=== PATIENT | male | born 1990 | race Hispanic/Latino ===

== ENCOUNTER 2023-11-11 13:33 | Emergency (ER) | payer BC ==
[~2023-11-11] VITALS: Ht 170.2 cm; Wt 73.5 kg
[2023-11-11] MEDS: NEOMY SULF/BACITRA/POLYMYXIN B 1 EACH PACKET TP ONE (15:57)
[2023-11-11] MEDS: cePHALexin 500 MG CAPSULE PO ONE (15:57)
[2023-11-11] MEDS ORDERED: CEPH500B PO (15:58)
[2023-11-11] MEDS ORDERED: IBUP-2077 PO (15:58)
[2023-11-11] MEDS: LIDOCAINE HCL 1% 20 ML VIAL INJ SCH (15:58)
[2023-11-11] MEDS: teTANUS/diphthERIA TOXOID [ADULT] 0.5 ML VIAL IM ONE (15:59)
[2023-11-11 16:35] VITALS: BP 124/51; PULSE 81; RESP 18; O2SAT 97
== END 2023-11-11 16:42 | disposition home or self-care (01) ==
LOC: EDH 13:33
DX: S60.450A Superficial foreign body of right index finger, initial encounter (principal); W45.8XXA Other foreign body or object entering through skin, initial encounter; Y93.89 Activity, other specified; Y92.89 Other specified places as the place of occurrence of the external cause; Y99.8 Other external cause status
CPT/HCPCS: 64450; 90471; 90714